=== PATIENT | female | born 1990 | race Hispanic/Latino ===

== ENCOUNTER 2024-03-01 02:59 | Observation (INO) | payer OTHER ==
[2024-03-01] MEDS ORDERED: Promethazine HCl 25 MG/ML VIAL IM PRN (03:42)
[2024-03-01] MEDS ORDERED: Ondansetron PF 4 MG/2 ML Vial IVP PRN (03:42)
[2024-03-01] MEDS ORDERED: Acetaminophen 500 MG TAB PO PRN (03:42)
[2024-03-01] MEDS ORDERED: hydrALAZINE 20 MG/ML VIAL SLOW IVP PRN (03:42)
[2024-03-01 03:57] VITALS: TEMP 98.5
[2024-03-01 04:04] VITALS: BMI 50.3
[2024-03-01] MEDS ORDERED: HumaLOG 300 UNITS/3 ML VIAL SC PRN (05:25)
[2024-03-01] MEDS ORDERED: Dextrose 50% Abboject 50 ML SYRINGE SLOW IVP PRN (05:25)
[2024-03-01] MEDS ORDERED: Dextrose 5% in Water 1,000 ML IV PRN (05:25)
[2024-03-01] MEDS ORDERED: Glucagon 1 MG/ML KIT IM PRN (05:25)
[2024-03-01 07:46] VITALS: BP 123/71
[2024-03-01] MEDS ORDERED: Lantus 1000 UNITS/10 ML VIAL SC SCH (09:00)
[2024-03-01] MEDS: HumaLOG 300 UNITS/3 ML VIAL SC SCH (09:17)
[2024-03-01] MEDS: Aspirin 81 mg Enteric Coated Tablet PO SCH (09:58)
[2024-03-01] MEDS: Ferrous Sulfate 325 MG TAB PO SCH (09:59)
[2024-03-01] MEDS: metFORMIN 500 MG TAB PO SCH (09:59)
[2024-03-01] MEDS: Prenatal Vitamin 1 TAB PO SCH (09:59)
[2024-03-01] MEDS: Insulin NPH Human Isophane 100 UNITS/ML (10 ML VIAL) SC SCH (10:01)
== END 2024-03-01 10:15 | disposition home or self-care (01) ==
LOC: INTOOBSV 03:17 → CSHANTE 03:17
PROVIDERS: ADMIT Family Medicine; ATTEND Family Medicine
DX: O00-O9A Pregnancy, childbirth and the puerperium (principal); N76.4 Abscess of vulva; O99.212 Obesity complicating pregnancy, second trimester; O24.112 Pre-existing type 2 diabetes mellitus, in pregnancy, second trimester; O99.891 Other specified diseases and conditions complicating pregnancy; R10.2 Pelvic and perineal pain; Z79.899 Other long term (current) drug therapy; Z79.4 Long term (current) use of insulin; Z79.84 Long term (current) use of oral hypoglycemic drugs; Z3A.19 19 weeks gestation of pregnancy
CPT/HCPCS: 36415; 36416; 76805; 80053; 81001; 83605; 83690; 85025; 87040; 87086; G0378; J1815; J3490